=== PATIENT | female | born 2005 | race Hispanic/Latino ===

== ENCOUNTER 2024-07-29 11:11 | Emergency (ER) | payer SELFPAY ==
[~2024-07-29] VITALS: Ht 157.5 cm; Wt 49.9 kg
[2024-07-29 11:35] VITALS: PULSE 83; RESP 14; TEMP 98.8; O2SAT 100
== END 2024-07-29 16:30 | disposition home or self-care (01) ==
LOC: ER 11:31
DX: R09.81 Nasal congestion (principal); J02.8 Acute pharyngitis due to other specified organisms
CPT/HCPCS: 99282